=== PATIENT | female | born 1990 | race Caucasian/White ===

== ENCOUNTER 2018-11-21 11:58 | Inpatient (IN) | payer MEDICAID, OTHER ==
[~2018-11-21] VITALS: Ht 162.6 cm; Wt 41.5 kg
[~2018-11-21 11:58] MED LIST: CITA10TA71 PO; PHEN-786 PO
[2018-11-21 13:00] LABS: BASOPHILS # (AUTO) 0.1 X10'3 (0-0.2); BASOPHILS % (AUTO) 0.3 % (0-1); EOSINOPHILS % (AUTO) 0 % (0-6); HEMATOCRIT 42.3 % (35.0-45.0); HEMOGLOBIN 13.8 g/dl (12.0-16.0); LYMPHOCYTES # (AUTO) 1.1 X10'3 (1.1-4.8); LYMPHOCYTES % (AUTO) 5.2 % (21-51); MEAN CORPUSCULAR HEMOGLOBIN 30.5 PG (27.0-31.0); MEAN CORPUSCULAR HGB CONC 32.7 g/dL (33.0-36.5); MEAN CORPUSCULAR VOLUME 93.4 FL (78-98); MEAN PLATELET VOLUME 8.3 FL (7.4-10.4); MONOCYTES # (AUTO) 1.2 X10'3 (0-0.9); MONOCYTES % (AUTO) 5.7 % (2-12); NEUTROPHILS # (AUTO) 18.8 X10'3 (1.8-7.7); NEUTROPHILS % (AUTO) 88.8 % (42-75); PLATELET COUNT 279 X10'3 (140-440); RED BLOOD COUNT 4.52 X10'6 (4.20-5.60); RED CELL DISTRIBUTION WIDTH 13.2 % (11.5-14.5); WHITE BLOOD COUNT 21.2 X10'3 (4.5-11.0)
[2018-11-21] MEDS ORDERED: ondansetron/PF 4mg/2ml inj IV ONE (13:00)
[2018-11-21] MEDS ORDERED: tamsulosin 0.4mg capsule PO ONE (13:00)
[2018-11-21] MEDS ORDERED: normal saline 1000ML IV soln IVB ONE ×2 (13:00→13:40)
[2018-11-21] MEDS ORDERED: morphine 4 MG/ML inj SYRINge IV ONE (13:00)
[2018-11-21] MEDS ORDERED: ketorolac trometh. 30mg/ml inj. IV ONE (13:00)
[2018-11-21] MEDS ORDERED: ketorolac tromethamine 15mg/ml inj. IV ONE (13:10)
[2018-11-21 13:13] LABS: ALANINE AMINOTRANSFERASE 18 U/L (12-78); ALBUMIN 4.2 G/DL (3.4-5.0); ALBUMIN/GLOBULIN RATIO 1.2 (1.1-1.5); ALKALINE PHOSPHATASE 70 IU/L (46-116); ANION GAP 15 (8-16); ASPARTATE AMINO TRANSFERASE 14 U/L (10-37); BILIRUBIN,TOTAL 0.5 MG/DL (0.1-1.0); BLOOD UREA NITROGEN 18 MG/DL (7-18); BUN/CREATININE RATIO 19.4 (6.6-38.0); CALCIUM 9.5 MG/DL (8.5-10.1); CHLORIDE 105 MMOL/L (99-107); CREATININE 0.93 MG/DL (0.40-0.90); GLUCOSE 165 MG/DL (70-104); SODIUM 140 MMOL/L (135-145); TOTAL CARBON DIOXIDE 20.5 MMOL/L (24-32); TOTAL PROTEIN 7.7 G/DL (6.4-8.2); eGFR 72 ML/MIN
[2018-11-21 13:24] LABS: INR 0.9 INR
[2018-11-21] MEDS ORDERED: potassium Cl 10 mEq/100mL bag IV ONE (13:40)
[2018-11-21] MEDS ORDERED: potassium 10mEq/100ml NS w/LIDOcaine (10mg/bag) IV ONE (13:44)
[2018-11-21 15:22] LABS: URINE HCG NEGATIVE (NEG)
[2018-11-21 15:23] LABS: CLARITY,URINE CLOUDY (Clear); COLOR,URINE YELLOW (Yellow); GLUCOSE, URINE NEGATIVE (Neg); KETONES,URINE 15 mg/dl (Neg); LEUKOCYTE ESTERASE ,URINE MODERATE (Neg); NITRITES, URINE POSITIVE (Neg); OCCULT BLOOD,URINE MODERATE (Neg); PH,URINE 6.5 (4.8-8.0); PROTEIN,URINE TRACE mg/dl (Neg); UROBILINOGEN,URINE 0.2 E.U/dL (0.2-1.0)
[2018-11-21 15:28] LABS: UA COLLECTION TYPE CLN CATCH MIDSTREAM
[2018-11-21 15:29] LABS: BACTERIA,URINE 3+ /HPF (Neg); MUCUS STRANDS FEW /LPF (Neg); SQUAMOUS EPITHELIAL CELL,UR MODERATE /LPF (FEW); TRANSITIONAL EPI CELLS,URINE FEW /HPF; WBC,URINE 50-100 /HPF (0-4)
[2018-11-21] MEDS ORDERED: CefTRIAXone 2gm/D5W 50ml 50 ML IV ONE (15:40)
[2018-11-21] MEDS ORDERED: NAPR-56 PO (16:28)
[2018-11-21] MEDS ORDERED: FLO0.4C PO (16:28)
[2018-11-21] MEDS ORDERED: HYDR-4353 PO (16:28)
[2018-11-21] MEDS ORDERED: LEVO750T21 PO (16:28)
[2018-11-21] MEDS ORDERED: mag hydrox/Alum hydrox/simeth 30ml oral suspension PO PRN (17:15)
[2018-11-21] MEDS ORDERED: potassium Cl 40MEQ/NS 500ml 500 ML IV PRN ×2 (17:15)
[2018-11-21] MEDS ORDERED: magnesium Cl slow-release 64mg tablet PO PRN (17:15)
[2018-11-21] MEDS ORDERED: bisacodyl 10mg suppository rectal RC PRN (17:15)
[2018-11-21] MEDS ORDERED: diphenhydrAMINE 25mg capsule PO PRN (17:15)
[2018-11-21] MEDS ORDERED: magnesium hydroxide 30ml (MOM) UD suspension PO PRN (17:15)
[2018-11-21] MEDS ORDERED: ondansetron/PF 4mg/2ml inj IV PRN (17:15)
[2018-11-21] MEDS ORDERED: magnesium 4gm in 100ml NS 100 ML IV PRN (17:15)
[2018-11-21] MEDS ORDERED: acetaminophen 325mg tablet PO PRN ×2 (17:15)
[2018-11-21] MEDS ORDERED: magnesium 2GM in 50ml NS 50 ML IV PRN (17:15)
[2018-11-21] MEDS: K and/or MAG REPLACEMENT MC SCH (17:15)
[2018-11-21] MEDS ORDERED: metoclopramide 5 mg/ml inj IV PRN (17:15)
[2018-11-21] MEDS ORDERED: potassium Cl 20 mEq SR tablet PO PRN (17:15)
--- NOTE | 2018-11-21 19:36 | NUR ---
Patient in room [facility]. I have received report from Flora in the ED and had the opportunity to ask questions. Pt will be brought up to the unit shortly.
[2018-11-21] MEDS: normal saline 1000ml 1,000 ML IV SCH ×2 (19:38→23:51)
[2018-11-21] MEDS: morphine 2 MG/ML inj. syringe IV PRN (19:52)
[2018-11-21 20:00] VITALS: BP 119/73
[2018-11-21] MEDS: HYDROcodone/acetaminophen 5mg/325mg tablet PO PRN (20:59)
[2018-11-21] MEDS: docusate sod 100mg capsule PO SCH (20:59)
[2018-11-21] MEDS: heparin, porcine 5000 units/ml vial SQ SCH (21:00)
[2018-11-22] VITALS (21 sets, daily range): BP systolic 95–128; BP diastolic 55–86
[2018-11-22] MEDS: HYDROcodone/acetaminophen 5mg/325mg tablet PO PRN ×4 (01:14→22:04)
[2018-11-22] MEDS: normal saline 1000ml 1,000 ML IV SCH ×3 (02:41→17:32)
[2018-11-22] MEDS ORDERED: NO HOME MEDS (03:50)
[2018-11-22 06:07] LABS: URINE AMPHETAMINE SCREEN POSITIVE (Neg); URINE BARBITUATE SCREEN NEGATIVE (Neg); URINE BENZODIAZEPINES SCREEN NEGATIVE (Neg); URINE CANNABINOID SCREEN POSITIVE (Neg); URINE COCAINE SCREEN NEGATIVE (Neg); URINE METHADONE SCREEN NEGATIVE (Neg); URINE OPIATE SCREEN POSITIVE (Neg); URINE PHENCYCLIDINE SCREEN NEGATIVE (Neg)
--- NOTE | 2018-11-22 06:39 | NUR ---
Patient in room [facility]. I have received report from Karen SUMNER and had the opportunity to ask questions and assume patient care.
[2018-11-22] MEDS: heparin, porcine 5000 units/ml vial SQ SCH ×2 (06:43→20:08)
--- NOTE | 2018-11-22 06:48 | NUR ---
Problems reprioritized. Patient report given, questions answered & plan of care reviewed with Layla SUMNER.
[2018-11-22] MEDS: docusate sod 100mg capsule PO SCH ×2 (07:00→20:06)
[2018-11-22] MEDS: CefTRIAXone 2gm/D5W 50ml 50 ML IV SCH (07:02)
[2018-11-22] MEDS: K and/or MAG REPLACEMENT MC SCH (08:00)
[2018-11-22 08:28] LABS: BASOPHILS % (AUTO) 0.1 % (0-1); EOSINOPHILS % (AUTO) 0.1 % (0-6); HEMATOCRIT 37.8 % (35.0-45.0); HEMOGLOBIN 12.4 g/dl (12.0-16.0); LYMPHOCYTES # (AUTO) 0.9 X10'3 (1.1-4.8); LYMPHOCYTES % (AUTO) 4.6 % (21-51); MEAN CORPUSCULAR HEMOGLOBIN 30.7 PG (27.0-31.0); MEAN CORPUSCULAR HGB CONC 32.9 g/dL (33.0-36.5); MEAN CORPUSCULAR VOLUME 93.3 FL (78-98); MEAN PLATELET VOLUME 8.6 FL (7.4-10.4); MONOCYTES # (AUTO) 1.2 X10'3 (0-0.9); MONOCYTES % (AUTO) 6.4 % (2-12); NEUTROPHILS # (AUTO) 17.3 X10'3 (1.8-7.7); NEUTROPHILS % (AUTO) 88.8 % (42-75); PLATELET COUNT 213 X10'3 (140-440); RED BLOOD COUNT 4.05 X10'6 (4.20-5.60); RED CELL DISTRIBUTION WIDTH 13.6 % (11.5-14.5); WHITE BLOOD COUNT 19.5 X10'3 (4.5-11.0)
--- NOTE | 2018-11-22 08:50 | NUR ---
Positive blood culture result gram negative rods reported to Dr. Flower via paging system
[2018-11-22 08:51] LABS: ALANINE AMINOTRANSFERASE 15 U/L (12-78); ALBUMIN 2.8 G/DL (3.4-5.0); ALBUMIN/GLOBULIN RATIO 0.8 (1.1-1.5); ALKALINE PHOSPHATASE 55 IU/L (46-116); ANION GAP 7 (8-16); ASPARTATE AMINO TRANSFERASE 15 U/L (10-37); BILIRUBIN,TOTAL 0.6 MG/DL (0.1-1.0); BLOOD UREA NITROGEN 11 MG/DL (7-18); BUN/CREATININE RATIO 9.8 (6.6-38.0); CALCIUM 7.5 MG/DL (8.5-10.1); CHLORIDE 107 MMOL/L (99-107); CREATININE 1.12 MG/DL (0.40-0.90); GLUCOSE 100 MG/DL (70-104); MAGNESIUM 1.4 MG/DL (1.5-2.4); PHOSPHORUS 2.6 MG/DL (2.3-4.5); POTASSIUM 3.4 MMOL/L (3.5-5.1); SODIUM 139 MMOL/L (135-145); TOTAL CARBON DIOXIDE 24.7 MMOL/L (24-32); TOTAL PROTEIN 6.2 G/DL (6.4-8.2); eGFR 58 ML/MIN
[2018-11-22 09:29] LABS: PLATELET ESTIMATE NORMAL; TOTAL CELLS COUNTED 100
--- NOTE | 2018-11-22 09:40 | NUR ---
Called OR charge nurse Nik to confirm schedule of surgery today, he said patient is not on schedule today at this time. I let him know that patient had eaten breakfast this am.
[2018-11-22] MEDS ORDERED: ringers solution, lacted 1,000 ML IV ONE (11:00)
[2018-11-22] MEDS: morphine 2 MG/ML inj. syringe IV PRN (11:24)
[2018-11-22] MEDS ORDERED: ringers solution, lacted 1,000 ML IV SCH (12:41)
[2018-11-22] MEDS ORDERED: morphine 4 MG/ML inj SYRINge IV PRN ×2 (12:45)
[2018-11-22] MEDS ORDERED: fentaNYL/PF 50MCG/1 ML 2ML syringe IV PRN ×2 (12:45)
[2018-11-22] MEDS ORDERED: hydrALAZINE 20mg/ml inj. IV PRN (12:45)
[2018-11-22] MEDS ORDERED: ondansetron/PF 4mg/2ml inj IV PRN (12:45)
[2018-11-22] MEDS ORDERED: labetalol 20mg/4ml (5mg/ml) syringe IV PRN (12:45)
--- NOTE | 2018-11-22 13:00 | NUR ---
Patient is in the OR at the moment
[2018-11-22] MEDS ORDERED: propofol inj 20 ML IV ONE (13:18)
[2018-11-22] MEDS ORDERED: fentaNYL/PF 50MCG/1 ML 2ML syringe ONE (13:18)
[2018-11-22] MEDS ORDERED: LIDOcaine 2% (20mg/ml) 5ml vial ONE (13:18)
[2018-11-22] MEDS ORDERED: sevoflurane 250ml liquid IH ONE (13:37)
--- NOTE | 2018-11-22 14:08 | NUR ---
Received from OR via BED, accompanied by Anesthesiologist DR PUCKETT and report given by Anesthesiologist. PT VERY DROWSY, NO S/S OF DISTRESS/DISCOMFORT, VSS. Addendum: 11/22/18 at 1428 by Albania Sanford RN Amended: Links added.
--- NOTE | 2018-11-22 15:28 | NUR ---
Report called to receiving nurse. Transferred via BED, CELL PHONE AND MISSILE INSPECTOR ONLY Belongings SENT W/PT TO ROOM 347B, BLL, SIDE RAILS UP, PT ORIENTED TO SAFETY, RECEIVING RN NOTIFIED OF PTS ARRIVAL. Special Issues communicated to receiving nurse. YES. Addendum: 11/22/18 at 1616 by Albania Sanford RN Amended: Links added.
--- NOTE | 2018-11-22 15:43 | NUR ---
Patient just got back from PACU, patient lying on bed, appears sleepy. Patient hooked to vital signs machine for post op monitoring.
--- NOTE | 2018-11-22 18:51 | NUR ---
Problems reprioritized. Patient report given, questions answered & plan of care reviewed with Pat RN.
[2018-11-22] MEDS: lactobacillus rhamnosus 10,000 MMU CELLS/CAPSULE PO SCH (20:06)
[2018-11-22] MEDS: potassium Cl 20 mEq SR tablet PO PRN (20:07)
[2018-11-23] MEDS: potassium Cl 20 mEq SR tablet PO PRN (00:21)
[2018-11-23] MEDS: normal saline 1000ml 1,000 ML IV SCH ×2 (01:03→07:12)
[2018-11-23 04:10] VITALS: BP 124/84
[2018-11-23 05:16] LABS: ALANINE AMINOTRANSFERASE 14 U/L (12-78); ALBUMIN 2.5 G/DL (3.4-5.0); ALBUMIN/GLOBULIN RATIO 0.8 (1.1-1.5); ALKALINE PHOSPHATASE 70 IU/L (46-116); ANION GAP 8 (8-16); ASPARTATE AMINO TRANSFERASE 13 U/L (10-37); BASOPHILS % (AUTO) 0.2 % (0-1); BILIRUBIN,TOTAL 0.3 MG/DL (0.1-1.0); BLOOD UREA NITROGEN 7 MG/DL (7-18); BUN/CREATININE RATIO 11.3 (6.6-38.0); CALCIUM 8.1 MG/DL (8.5-10.1); CHLORIDE 107 MMOL/L (99-107); CREATININE 0.62 MG/DL (0.40-0.90); EOSINOPHILS # (AUTO) 0.1 X10'3 (0-0.9); GLUCOSE 92 MG/DL (70-104); HEMATOCRIT 34.8 % (35.0-45.0); HEMOGLOBIN 11.8 g/dl (12.0-16.0); LYMPHOCYTES # (AUTO) 1.6 X10'3 (1.1-4.8); LYMPHOCYTES % (AUTO) 11.2 % (21-51); MAGNESIUM 1.6 MG/DL (1.5-2.4); MEAN CORPUSCULAR HEMOGLOBIN 31.2 PG (27.0-31.0); MEAN CORPUSCULAR HGB CONC 33.8 g/dL (33.0-36.5); MEAN CORPUSCULAR VOLUME 92.3 FL (78-98); MEAN PLATELET VOLUME 8.7 FL (7.4-10.4); MONOCYTES # (AUTO) 1.2 X10'3 (0-0.9); MONOCYTES % (AUTO) 8.4 % (2-12); NEUTROPHILS # (AUTO) 11.3 X10'3 (1.8-7.7); NEUTROPHILS % (AUTO) 79.2 % (42-75); PHOSPHORUS 2.4 MG/DL (2.3-4.5); PLATELET COUNT 190 X10'3 (140-440); POTASSIUM 3.5 MMOL/L (3.5-5.1); RED BLOOD COUNT 3.77 X10'6 (4.20-5.60); RED CELL DISTRIBUTION WIDTH 13.2 % (11.5-14.5); SODIUM 138 MMOL/L (135-145); TOTAL CARBON DIOXIDE 22.8 MMOL/L (24-32); TOTAL PROTEIN 5.7 G/DL (6.4-8.2); WHITE BLOOD COUNT 14.3 X10'3 (4.5-11.0); eGFR > 90 ML/MIN
--- NOTE | 2018-11-23 06:25 | NUR ---
Patient in room [facility]. I have received report from Pat RN and had the opportunity to ask questions and assume patient care.
[2018-11-23 07:00] VITALS: BP 126/82
[2018-11-23] MEDS: lactobacillus rhamnosus 10,000 MMU CELLS/CAPSULE PO SCH (07:08)
[2018-11-23] MEDS: CefTRIAXone 2gm/D5W 50ml 50 ML IV SCH (07:08)
[2018-11-23] MEDS: docusate sod 100mg capsule PO SCH (07:08)
[2018-11-23] MEDS: heparin, porcine 5000 units/ml vial SQ SCH (07:09)
[2018-11-23] MEDS: HYDROcodone/acetaminophen 5mg/325mg tablet PO PRN (07:11)
[2018-11-23] MEDS: K and/or MAG REPLACEMENT MC SCH (08:00)
[2018-11-23 11:00] VITALS: BP 125/86
--- NOTE | 2018-11-23 11:30 | NUR ---
Patient expressed frustration about not seeing her doctor yet and that she wanted to leave and smoke. Patient was told that she can get out of her room to walk around the floor but not allowed to smoke as it is a non-smoking facility. When told to patient if she will be signing the AMA form, she did not answered my question. Charge nurse Sonia was notified immediately about this. Paged DR. Flower regarding patient wanted to be discharged.Sonia talked to the patient about the policy of not leaving the hospital building and to smoke. Patient left her room unable to find her within the third floor building. Dr. Flower called me back and said that patient should not be allowed to leave the floor. My charge nurse and I told Dr. Flower that patient was told not to smoke and not to leave the building. Received order from Dr. Flower to start patient on Nicotine patch as patient agreed to take to fight craving for cigarette. Security was notified about patient left the unit. After 10 minutes of patient leaving the floor, patient came back and admitted she smoke cigarette. I told patient that we will start her on Nicotine patch, patient agreed
[2018-11-23] MEDS ORDERED: nicotine 21mg patch - 24 hr TD SCH (11:45)
--- NOTE | 2018-11-23 12:00 | NUR ---
Started patient on Nicotine patch, patch applied on her left shoulder. Patient was educated about not smoking while on patch as it is not safe to do. She verbalized understanding
[2018-11-23] MEDS ORDERED: CIPR-230 PO (12:28)
[2018-11-23] MEDS ORDERED: LACT1CAP26 PO (12:28)
--- NOTE | 2018-11-23 13:36 | NUR ---
Discharge instructions given to patient, patient verbalized understanding of all instructions made. Peripheral IV catheter removed, tip intact. [facility] pharmacy to deliver patient's new prescription at bedside. At this time, [facility] pharmacy scheduler said he should be able to deliver the new prescription around 14:00. Instructed patient to ensure she has all her belongings with her when she leave and to ensure she got her new prescriptions.
--- NOTE | 2018-11-23 14:52 | NUR ---
Patient discharged home. Patient received her new prescription delivered at bedside by [facility]
== END 2018-11-23 14:54 | disposition home or self-care (01) | DRG 720 ==
LOC: ER 11:59 → SUR 3N 19:30
PROVIDERS: ADMIT Family Medicine; ATTEND Family Medicine
PROC: BT171ZZ Fluoroscopy of Left Ureter using Low Osmolar Contrast (ICD-10-PCS; 2018-11-22)
PROC: 0T778DZ Dilation of Left Ureter with Intraluminal Device, Via Natural or Artificial Opening Endoscopic (ICD-10-PCS; principal; 2018-11-22 13:37)
DX: A41.9 Sepsis, unspecified organism (principal); E87.2 Acidosis; E87.6 Hypokalemia; F12.10 Cannabis abuse, uncomplicated; F14.10 Cocaine abuse, uncomplicated; F15.10 Other stimulant abuse, uncomplicated; F17.210 Nicotine dependence, cigarettes, uncomplicated; R91.1 Solitary pulmonary nodule; N13.6 Pyonephrosis; Z87.442 Personal history of urinary calculi; Z91.19 Patient's noncompliance with other medical treatment and regimen; Z71.51 Drug abuse counseling and surveillance of drug abuser; Z71.6 Tobacco abuse counseling
CPT/HCPCS: 36415; 74176; 76000; 80053; 80305; 81001; 81025; 83605; 83735; 84100; 84145; 85025; 85610; 87040; 87070; 87077; 87088; 87186; 96361; 96374; 96375; 99285; A4402; C1758; C1769; C2617; G0378; J0696; J1644; J1885; J2001; J2270; J2405; J2704; J3010; J3480; J7030; J7120

== ENCOUNTER 2018-12-13 21:50 | Emergency (ER) | payer MEDICAID ==
[~2018-12-13] VITALS: Ht 162.6 cm; Wt 48.0 kg
[~2018-12-13 21:50] MED LIST changes: +CIPR-230 PO; -CITA10TA71 PO; +LACT1CAP26 PO; -PHEN-786 PO
[2018-12-13] MEDS ORDERED: normal saline 1000ML IV soln IVB ONE (22:00)
[2018-12-13] MEDS ORDERED: ketorolac trometh. 30mg/ml inj. IV ONE (22:00)
[2018-12-13] MEDS ORDERED: HYDROmorphone inj. 0.5 MG/0.5 ML DISP.SYRIN IV PRN (22:00)
[2018-12-13] MEDS ORDERED: ondansetron/PF 4mg/2ml inj IV ONE (22:00)
[2018-12-13 22:25] LABS: BASOPHILS # (AUTO) 0.1 X10'3 (0-0.2); BASOPHILS % (AUTO) 0.5 % (0-1); EOSINOPHILS # (AUTO) 0.5 X10'3 (0-0.9); EOSINOPHILS % (AUTO) 4.2 % (0-6); HEMATOCRIT 38.1 % (35.0-45.0); HEMOGLOBIN 12.6 g/dl (12.0-16.0); LYMPHOCYTES # (AUTO) 2.9 X10'3 (1.1-4.8); LYMPHOCYTES % (AUTO) 26.4 % (21-51); MEAN CORPUSCULAR HEMOGLOBIN 30.4 PG (27.0-31.0); MEAN CORPUSCULAR HGB CONC 33.1 g/dL (33.0-36.5); MEAN CORPUSCULAR VOLUME 91.8 FL (78-98); MEAN PLATELET VOLUME 8.6 FL (7.4-10.4); MONOCYTES % (AUTO) 9.1 % (2-12); NEUTROPHILS # (AUTO) 6.7 X10'3 (1.8-7.7); NEUTROPHILS % (AUTO) 59.8 % (42-75); PLATELET COUNT 338 X10'3 (140-440); RED BLOOD COUNT 4.15 X10'6 (4.20-5.60); RED CELL DISTRIBUTION WIDTH 13.3 % (11.5-14.5); WHITE BLOOD COUNT 11.2 X10'3 (4.5-11.0)
[2018-12-13 22:30] LABS: CLARITY,URINE SLIGHTLY CLOUDY (Clear); COLOR,URINE YELLOW (Yellow); GLUCOSE, URINE NEGATIVE (Neg); KETONES,URINE NEGATIVE (Neg); LEUKOCYTE ESTERASE ,URINE MODERATE (Neg); NITRITES, URINE NEGATIVE (Neg); OCCULT BLOOD,URINE MODERATE (Neg); PH,URINE 7.5 (4.8-8.0); PROTEIN,URINE NEGATIVE (Neg); UROBILINOGEN,URINE 0.2 E.U/dL (0.2-1.0)
[2018-12-13 22:35] LABS: UA COLLECTION TYPE CLN CATCH MIDSTREAM
[2018-12-13] MEDS ORDERED: diazepam 5mg tablet PO ONE (22:35)
[2018-12-13 22:36] LABS: BACTERIA,URINE FEW /HPF (Neg); RBC,URINE 0-2 /HPF (0-2); SQUAMOUS EPITHELIAL CELL,UR MODERATE /LPF (FEW)
[2018-12-13 22:37] LABS: ALANINE AMINOTRANSFERASE 27 U/L (12-78); ALBUMIN 3.5 G/DL (3.4-5.0); ALKALINE PHOSPHATASE 76 IU/L (46-116); ANION GAP 7 (8-16); ASPARTATE AMINO TRANSFERASE 21 U/L (10-37); BILIRUBIN,TOTAL 0.2 MG/DL (0.1-1.0); BLOOD UREA NITROGEN 15 MG/DL (7-18); BUN/CREATININE RATIO 25.4 (6.6-38.0); CALCIUM 8.5 MG/DL (8.5-10.1); CHLORIDE 104 MMOL/L (99-107); CREATININE 0.59 MG/DL (0.40-0.90); GLUCOSE 111 MG/DL (70-104); LIPASE 217 U/L (73-393); SODIUM 140 MMOL/L (135-145); TOTAL PROTEIN 7.1 G/DL (6.4-8.2); eGFR > 90 ML/MIN
[2018-12-13] MEDS ORDERED: FLO0.4C PO (22:56)
[2018-12-13] MEDS ORDERED: KETO10TA2 PO (22:56)
[2018-12-13] MEDS ORDERED: PHEN-824 PO (22:56)
[2018-12-13] MEDS ORDERED: DIAZ5TAB PO (22:56)
[2018-12-13] MEDS ORDERED: OXYB5TAB11 PO (22:56)
[2018-12-13] MEDS ORDERED: HYDR-4353 PO (22:56)
[2018-12-13] MEDS ORDERED: ONDA4TAB6 PO (22:56)
[2018-12-13 23:24] VITALS: BP 105/66
== END 2018-12-13 23:26 | disposition home or self-care (01) ==
LOC: ER 21:51
DX: N23 Unspecified renal colic (principal); Z87.442 Personal history of urinary calculi; Z79.899 Other long term (current) drug therapy
CPT/HCPCS: 36415; 80053; 81001; 83690; 85025; 87088; 96374; 96375; 99283; J1885; J2405; J7030; 87077; 87186

== ENCOUNTER 2019-03-09 04:54 | Emergency (ER) | payer MEDICAID ==
[~2019-03-09] VITALS: Ht 162.6 cm; Wt 48.1 kg
[~2019-03-09 04:54] MED LIST changes: -CIPR-230 PO; +DIAZ5TAB PO; +KETO10TA2 PO; +ONDA4TAB6 PO; +OXYB5TAB16 PO; +PHEN-824 PO
[2019-03-09 04:57] VITALS: BP 140/74
== END 2019-03-09 05:53 | disposition left against medical advice (07) ==
LOC: ER 04:54
DX: R10.9 Unspecified abdominal pain (principal); Z53.21 Procedure and treatment not carried out due to patient leaving prior to being seen by health care provider

== ENCOUNTER 2019-04-04 05:18 | Emergency (ER) | payer MEDICAID ==
[~2019-04-04] VITALS: Ht 162.6 cm; Wt 50.0 kg
[2019-04-04 05:24] VITALS: BP 123/86
== END 2019-04-04 07:12 | disposition left against medical advice (07) ==
LOC: ER 05:19
DX: R10.9 Unspecified abdominal pain (principal); Z53.21 Procedure and treatment not carried out due to patient leaving prior to being seen by health care provider

== ENCOUNTER 2023-03-25 12:25 | Emergency (ER) | payer MEDICAID ==
[~2023-03-25] VITALS: Ht 162.6 cm; Wt 50.0 kg
[2023-03-25 12:32] VITALS: BP 123/81; PULSE 79; RESP 18; TEMP 97.9; O2SAT 99
== END 2023-03-25 13:36 | disposition left against medical advice (07) ==
LOC: ER 12:26
DX: K08.89 Other specified disorders of teeth and supporting structures (principal); Z53.21 Procedure and treatment not carried out due to patient leaving prior to being seen by health care provider
CPT/HCPCS: 99281

== ENCOUNTER 2024-02-22 15:16 | Emergency (ER) | payer MEDICAID, OTHER ==
[~2024-02-22] VITALS: Ht 162.6 cm; Wt 54.8 kg
[~2024-02-22 15:16] MED LIST changes: -OXYB5TAB16 PO; +OXYB5TAB21 PO
[2024-02-22 15:53] VITALS: BP 118/79; PULSE 98; RESP 18; TEMP 97.8; O2SAT 100
== END 2024-02-22 17:27 | disposition left against medical advice (07) ==
LOC: ER 15:17
DX: O26.899 Other specified pregnancy related conditions, unspecified trimester (principal); N93.8 Other specified abnormal uterine and vaginal bleeding; R10.84 Generalized abdominal pain; Z53.21 Procedure and treatment not carried out due to patient leaving prior to being seen by health care provider